=== PATIENT | male | born 1950 | race Hispanic/Latino ===

== ENCOUNTER 2018-10-01 07:27 | Day surgery (SDC) | payer MEDICARE, OTHER ==
[2018-10-01] MEDS ORDERED: ECOTRIN PO ONE (08:30)
[2018-10-01 08:41] LABS: Basophils # (Auto) 0.1 K/mm3 (0.0-0.1); Eosinophils # (Auto) 0.2 K/mm3 (0.0-0.4); Eosinophils % (Auto) 2.6 % (0.0-4.3); Hematocrit 38.8 % (35.5-45.6); Hemoglobin 13.1 gm/dl (11.8-15.2); Lymphocytes # (Auto) 1.6 K/mm3 (1.2-5.4); Lymphocytes % (Auto) 26.6 % (13.4-35.0); Mean Corpuscular HGB Conc 34 % (32-34); Mean Corpuscular Volume 97 fl (84-94); Monocytes # (Auto) 0.3 K/mm3 (0.0-0.8); Monocytes % (Auto) 5.5 % (0.0-7.3); Platelet Count 257 K/mm3 (140-440); Red Blood Count 4.01 M/mm3 (3.65-5.03); Red Cell Distribution Width 14.4 % (13.2-15.2)
[2018-10-01 08:54] LABS: BUN/Creatinine Ratio 19; Blood Urea Nitrogen 17 mg/dL (9-20); Calcium 9.3 mg/dL (8.4-10.2); Hemolysis Index 6
[2018-10-01] MEDS ORDERED: NACL 0.9% 500 ML 500 ML IV SCH (09:00)
[2018-10-01 09:01] LABS: INR 0.94 (0.87-1.13)
[2018-10-01] MEDS ORDERED: HEPARIN 10,000 UNITS/10 ML ONE (09:58)
[2018-10-01] MEDS ORDERED: NITROGLYCERIN SYRINGE 3 ML ONE (09:58)
[2018-10-01] MEDS ORDERED: XYLOCAINE 2% INFILTRATI ONE (09:58)
[2018-10-01] MEDS ORDERED: HEPARIN/NS 5000 UNIT/500ML(CATH LAB) 1,000 ML IR ONE (09:58)
[2018-10-01] MEDS ORDERED: CALAN ONE (09:58)
[2018-10-01] MEDS ORDERED: VERSED ONE (10:01)
[2018-10-01] MEDS ORDERED: SUBLIMAZE ONE (10:01)
--- NOTE | 2018-10-01 12:33 | Cardiac Catherization Report ---
CARDIAC CATHETERIZATION REFERRING PHYSICIAN: Raúl Israel MD INDICATION FOR PROCEDURE: The patient is a very pleasant 68-year-old gentleman with recurrent chest pain, multiple risk factors, recent negative stress test due to recurrent pain despite optimal medical therapy. I decided to proceed with left heart catheterization. Risks, benefits, potential alternatives explained at length prior to obtaining informed consent. PROCEDURE IN DETAIL: The patient was brought to catheterization lab in a postabsorptive state, prepped and draped in sterile fashion. Henok's test in right hand was normal. A 2 mL of 2% lidocaine used to anesthetize the right wrist. A standard 6-[place] hydrophilic sheath used to cannulate the right radial artery via modified Seldinger technique. All exchanges performed to exchange a J-tip guidewire. JL3.5 catheter was used to engage the left main. No dampening or ventricularization. Cineangiography was performed in all projections. JR4 catheter used to cross the aortic valve under fluoroscopic guidance. Left ventriculography performed in 30 GUERRERO and 30 SERBIAN projections via hand injections, catheter flushed. Manual pullback performed with continuous pressure monitoring. Catheter used to engage right coronary. No dampening or ventricularization. Cineangiography performed in all projections. Next, due to recurrent chest pain, hypertension, decided to proceeded with root aortography in the SERBIAN projection with power injector. Next, catheter was removed from the body of wire, sheath removed. Manual pressure used to achieve hemostasis. There were no complications. I directly supervised the administration of moderate sedation from 11:10 a.m. to 11:30 a.m. with fentanyl and Versed. DATA: Aortic pressure is 140/70, LV pressure is 140, LVEDP of 18 mmHg. Left ventriculography reveals normal systolic performance with estimated ejection fraction of 55-60%. No evidence of aortic stenosis. CORONARY ANATOMY: This is a right dominant system. Right coronary is a moderate sized vessel, courses AV groove, distally bifurcates in the posterior and posterolateral branches. No discrete stenosis noted. Scattered luminal irregularities are noted. Left main without significant disease, bifurcates left anterior descending and left circumflex. Left circumflex gives off a high OM trunk, scattered luminal irregularities with maximal narrowing of approximately 20-25% in the mid OM1. Left circumflex with scattered luminal irregularities, but no obstructive disease noted. Mild nonobstructive disease, MARIO 3 flow throughout the coronary tree. LAD is a moderate sized vessel, courses anterior intraventricular groove, wraps around the apex, no significant disease noted there or the diagonal system. Root aortography reveals normal contour, no evidence of dissection, penetrating aortic ulcer, or aortic insufficiency. Normal great vessel anatomy. CONCLUSIONS: 1. Mild nonobstructive coronary disease in this right dominant system. 2. Normal left ventricular systolic performance, estimated ejection fraction of 55-60%. 3. No evidence of aortic stenosis. 4. Normal root aortography without evidence of dissection, penetrating aortic ulcer, or aortic insufficiency. Recommend aggressive primary and secondary prevention measures. Exercise, blood pressure control, standard radial care. Results of procedure explained in length to the patient, his and his daughter. All questions and concerns were addressed. The patient will be discharged home in stable condition. Follow up with me in the office. JOB# [id number]/[email or web address]
[2018-10-01 13:21] VITALS: BP 111/69
== END 2018-10-01 14:00 | disposition home or self-care (01) ==
LOC: CATHLABREC 07:27
PROVIDERS: ATTEND Internal Medicine
DX: I25.10 Atherosclerotic heart disease of native coronary artery without angina pectoris (principal); G62.9 Polyneuropathy, unspecified; M19.90 Unspecified osteoarthritis, unspecified site; N05.9 Unspecified nephritic syndrome with unspecified morphologic changes; Z79.899 Other long term (current) drug therapy; Z79.82 Long term (current) use of aspirin; Z87.891 Personal history of nicotine dependence; Z87.442 Personal history of urinary calculi; Z98.890 Other specified postprocedural states
CPT/HCPCS: 36415; 80048; 85025; 85610; 85730; 93005; 93010; 93458; 93567; 99156; C1894; J1644; J2250; J3010; J7040; Q9967